=== PATIENT | male | born 1970 | race Two or more races ===

== ENCOUNTER 2025-04-27 09:41 | Outpatient (AMB) | payer BC, SELFPAY ==
[2025-04-27 10:25] VITALS: BP 148/89; PULSE 79; RESP 18; TEMP 36.2; O2SAT 99; BMI 31.6
--- NOTE | 2025-04-27 10:25 | PD.GSCLVISIT ---
Vital Signs - [facility] 04/27/25 10:25 Height 1.83 m Height Method Measured Weight 105.914 kg Weight Measurement Method Standing Scale BMI 31.6 BP 148/89 H Blood Pressure Source Automatic Cuff Blood Pressure Location Right Upper Arm Position Sitting Respiration 18 Pulse 79 Pulse Source Monitor Temp 97.2 F Temp Source Temporal Artery Scan Pulse Oximetry (%) 99 Oxygen Delivery Method Room Air Med/Allergies Allergies & Medications Allergies penicillin G Allergy (Intermediate, Verified 04/27/25 10:27) RASH Medication Reconciliation hydrocortisone acetate 25 mg rectal suppository (Anusol-HC) 25 mg MO QHS hemorrhoids #12 ea 04/27/25 [Rx] MA Intake Visit Data Collection New Patient or Established: New Patient (never been to [facility]) Reason for Visit:: HEMORRHOIDS Pain Present Currently: No Pain scale:: 0 Pain Scale Used: Slade-Garcia/Numerical Region Manager Required: No PCP or OBGYN visit in last 3 months: Yes Hx Now: No Do You Feel Safe at Home: Yes Authorities Contacted: N/A Smoking Status Smoking Status: Never smoker Immunization / Flu Flu Vaccine in the Last 12 Months: No Flu Vaccine Exclusion Criteria: No Exclusion Criteria Past Medical History Social History SMOKING STATUS: Smoking status: Never smoker Travel Risk Travel Hx Recent Travel: No HPI HPI Narrative 54M referred for symptomatic hemorrhoids. Pt states that since May 2024 he has been having rectal bleeding and discomfort. He drinks plenty of water and takes fiber pills, and states that his BMs vary, sometimes needing to strain, sometimes they are soft and other times loose. Pt has been having bleeding the past few days, usually with BMs but also he has had episodes of bleeding while at the gym that caused him to go home early. He has not noted any pencil thin stools, no changes in appetite or weight, and he has used preparation H as well as suppositories which he felt did not help. He has not yet tried sitz baths. Pt underwent colonoscopy in December and was advised it was normal aside from hemorrhoids PMH: None PSHx: Left ankle surgery Meds: None Allergies: PCN Family hx: No known CRC or IBD ROS Review of Systems Systems Reviewed: All systems reviewed, normal except as documented Objective/Exam General General Appearance: alert, cooperative and well groomed Resp Respiratory exam: Absent respiratory distress Rectal Rectal exam: Present normal inspection, normal rectal tone and hemorrhoids (small internal hemorrhoids seen on anoscopy, no external hemorrhoids) Assessment & Plan Diagnosis / Problem List (1) Internal hemorrhoids: Status: Acute Assessment & Plan: 54M referred for symptomatic internal hemorrhoids. I explained that maximizing his bowel regimen to avoid any constipation or diarrhea will be helpful, and recommended he switch to fiber in powder form instead of pill form. I also recommended sitz baths and will prescribe anusol suppositories per his request. I explained the THD procedure including benefits/risks of severe pain, difficulty urinating, hemorrhoid persistence/recurrence, and infection which could lead to a fistula. All questions were answered and pt would like to follow up in 4 weeks after trying these recommendations Office Procedures GNS Level of Care Nursing/Assessment Patient Status: Initial/New Patient Nursing Assessment/Reassesment: Medication Reconciliation, Update PMH in EMR and Vital Signs Coordination of Care: Complex Care and Chronic Disease 1-5, Education Complex Pt/Fam, Consent,records obtained, informed consent, Results/Orders obtained and Staff clarify orders New Patient Charge New Patient Point Assignment: [id number] New Patient Point Charge: DIRECTOR OF SAFETY AND SECURITY Level 3 ([id number]) Patient Portal Questionaires Social History Tobacco History Smoking Status: Never smoker Domestic Abuse History Do You Feel Safe at Home: Yes Review of Systems Report any current symptoms Only answer those that you have currently: Past Medical History Past Medical History Have you ever been diagnosed with any of the following:
== END 2025-04-27 10:42 | disposition home or self-care (01) ==
LOC: HODSRG 09:41
PROVIDERS: PCP Internal Medicine Gastroenterology; Referring Provider Internal Medicine Gastroenterology; Supervising Provider Surgery; Visit Provider Surgery
DX: K64.8 Other hemorrhoids (principal)
CPT/HCPCS: 99203; G0463